=== PATIENT | female | born 1980 | race Caucasian/White ===

== ENCOUNTER 2023-08-12 00:16 | Inpatient (IN) | payer MEDICAID ==
[2023-08-12] VITALS (9 sets, daily range): BP systolic 104–143; BP diastolic 60–101; PULSE 78–111; RESP 18–22; TEMP 97.8–98.4; O2SAT 92–99
[~2023-08-12] VITALS: Ht 154.9 cm; Wt 100.8 kg
[2023-08-12] MEDS ORDERED: DEXTROSE (50%) 50ML SYRG IV PRN ×2 (03:00→14:30)
[2023-08-12] MEDS ORDERED: ONDANSETRON HCL 4 MG/2 ML VIAL IV PRN (03:00)
[2023-08-12] MEDS ORDERED: NITROGLYCERIN 0.4 MG SL TAB SL PRN (03:00)
[2023-08-12] MEDS ORDERED: MORPHINE SULFATE INJ 2 MG/ml SYRG IV PRN (03:00)
[2023-08-12] MEDS ORDERED: MELATONIN 5 MG TAB PO ONE (03:30)
[2023-08-12 03:58] LABS: Basophils # (auto) 0 10 ^3/uL (0-0.2); Eosinophils # (auto) 0 10 ^3/uL (0-0.8); Lymphocytes # (auto) 0.5 10 ^3/uL (0.4-5.4); Monocytes # (auto) 0 10 ^3/uL (0-1.3); White Blood Cell 6.2 10^3/uL (4.4-10.8)
[2023-08-12 04:00] LABS: Basophils % (auto) 0.2 % (0.0-2.0); Hemoglobin 11.4 g/dL (12.2-16.2); Lymphocytes % (auto) 7.8 % (10.0-50.0); Mean Corpuscular Hemoglobin 22.2 pg (28.0-32.0); Mean Corpuscular Volume 73.9 fL (80.0-100.0); Monocytes % (auto) 0.6 % (0.0-12.0); Neutrophils # (auto) 5.7 10 ^3/uL (1.6-8.6); Neutrophils % (auto) 91.4 % (37.0-80.0); Nucleated Red Blood Cells % 0.1 %; Red Blood Cells 5.14 10^6/uL (4.0-5.20)
[2023-08-12 04:07] LABS: Red Cell Distribution Width 23.3 % (11.8-14.3)
[2023-08-12] MEDS ORDERED: FURO40TA4 PO (04:09)
[2023-08-12] MEDS ORDERED: RIV15T PO (04:09)
[2023-08-12] MEDS ORDERED: SPIR25TA8 PO (04:09)
[2023-08-12] MEDS ORDERED: METF-372 PO (04:09)
[2023-08-12 04:12] LABS: INR 1.35 (0.9-1.15); Partial Thromboplastin Time 29.1 SEC (24.5-34.5)
[2023-08-12 04:27] LABS: Alanine Aminotransferase 55 U/L (7-40); Albumin 3.3 g/dL (3.2-4.8); Alkaline Phosphatase 94 U/L (46-116); Anion Gap 12 (5-15); Aspartate Aminotransferase 53 U/L (13-40); BUN/Creatinine Ratio 17.2 (10.0-20.0); Bilirubin, Total 0.8 mg/dL (0.2-1.0); Blood Urea Nitrogen 20 mg/dL (9-23); Calcium 8.6 mg/dL (8.7-10.4); Carbon Dioxide 23 mmol/L (20-30); Chloride 100 mmol/L (98-107); Potassium 3.7 mmol/L (3.5-5.1); Sodium 135 mmol/L (136-145); Total Protein 6.5 g/dL (5.7-8.2)
[2023-08-12 04:35] LABS: Glucose 499 mg/dL (74-106)
[2023-08-12] MEDS: ACCU-CHEK COMFORT CURVE STRIP VI SCH ×2 (05:21→17:00)
[2023-08-12] MEDS: InsuLIN REG 1unit/0.01ml Soln (100units/ml) SC SCH ×3 (05:22→22:12)
[2023-08-12] MEDS: FUROSEMIDE 20 MG/2 ML VIAL IV SCH (05:45)
[2023-08-12] MEDS ORDERED: FUROSEMIDE 40 MG TAB PO SCH (06:00)
[2023-08-12 06:10] LABS: Anisocytosis Slight; Hypochromia Moderate; Ovalocytes FEW; Platelet Estimate Adequate; Target Cell FEW
[2023-08-12 11:13] LABS: Magnesium 1.6 mg/dL (1.6-2.6)
[2023-08-12] MEDS: GABAPENTIN 100 MG CAP PO SCH (11:26)
[2023-08-12] MEDS: ASPirin 81 mg TAB PO SCH (11:26)
[2023-08-12] MEDS: SPIRONOLACTONE 25 MG TAB PO SCH (11:26)
[2023-08-12] MEDS: METOPROLOL TARTRATE 25 MG TAB PO SCH (11:39)
[2023-08-12] MEDS: ENOXAPARIN SOD 100 MG/1 ML SYRINGE SC SCH (11:40)
[2023-08-12] MEDS: MAGNESIUM SULFATE 1GM/100ML 100 ML IV ONE (13:35)
[2023-08-12] MEDS: POTASSIUM CHL 20 Meq TABLET PO ONE (13:35)
[2023-08-12 14:02] LABS: Urine WBC None Seen /hpf (0 - 5)
[2023-08-12] MEDS ORDERED: hydrOXYzine HCL 10 MG TAB PO PRN (14:15)
[2023-08-12] MEDS ORDERED: LORazepam 0.5 MG TAB PO PRN (14:15)
[2023-08-12 14:16] LABS: Urine Bacteria FEW /hpf (None Seen); Urine Blood Negative /uL (Negative); Urine Clarity Clear (Clear); Urine Color Light-Yellow (Yellow); Urine Protein, UAD Negative (Negative); Urine Specific Gravity 1.011 (1.001-1.035); Urine Urobilinogen Normal (Negative); Urine pH 5.5 (5.0-9.0)
[2023-08-12 14:24] LABS: Free T4 (Free Thyroxine) 0.97 ng/dL (0.89-1.76)
[2023-08-12 14:25] LABS: Ferritin 15.4 ng/mL (10-291); Free T3 4.01 pg/mL (2.3-4.2)
[2023-08-12 14:26] LABS: Amphetamine Screen, Urine Pos (NEGATIVE); Barbiturate Scree,Urine Neg (NEGATIVE); Benzodiazephine Screen, Urine Neg (NEGATIVE); Cocaine Screen, Urine Neg (NEGATIVE); Opiate Scree,Urine Neg (NEGATIVE); Phencyclidine Screen, Urine Neg (NEGATIVE)
[2023-08-12 14:27] LABS: Cannabinoid Screen, Urine Neg (NEGATIVE)
[2023-08-12 16:21] LABS: % Iron Saturation 7.5 % (15-50)
[2023-08-12] MEDS: FUROSEMIDE 40 MG/4 ML VIAL IV SCH (18:37)
[2023-08-12] MEDS ORDERED: ATORVASTATIN 20 MG TAB PO SCH (22:00)
[2023-08-12] MEDS: ATORVASTATIN 20 MG TAB PO SCH (22:14)
[2023-08-13] VITALS (12 sets, daily range): BP systolic 100–120; BP diastolic 57–84; PULSE 67–80; RESP 14–23; TEMP 97.9–98.5; O2SAT 92–100
[2023-08-13] MEDS: ACETAMINOPHEN 325 MG TAB PO PRN (03:24)
[2023-08-13 05:36] LABS: Basophils # (auto) 0 10 ^3/uL (0-0.2); Basophils % (auto) 0.2 % (0.0-2.0); Eosinophils # (auto) 0 10 ^3/uL (0-0.8); Lymphocytes # (auto) 0.9 10 ^3/uL (0.4-5.4); Mean Corpuscular Hemoglobin 22.3 pg (28.0-32.0); Nucleated Red Blood Cells % 0.1 %
[2023-08-13 05:39] LABS: Hematocrit 33.1 % (36.0-46.0); Hemoglobin 10.2 g/dL (12.2-16.2); Lymphocytes % (auto) 8.6 % (10.0-50.0); Mean Corpuscular Hgb Conc. 30.8 g/dL (32.0-36.0); Mean Corpuscular Volume 72.2 fL (80.0-100.0); Monocytes # (auto) 0.7 10 ^3/uL (0-1.3); Monocytes % (auto) 6.7 % (0.0-12.0); Neutrophils # (auto) 8.4 10 ^3/uL (1.6-8.6); Neutrophils % (auto) 84.5 % (37.0-80.0); Red Blood Cells 4.59 10^6/uL (4.0-5.20)
[2023-08-13 05:50] LABS: Red Cell Distribution Width 22.8 % (11.8-14.3)
[2023-08-13 05:51] LABS: Alanine Aminotransferase 55 U/L (7-40); Albumin 3.2 g/dL (3.2-4.8); Alkaline Phosphatase 97 U/L (46-116); Anion Gap 6 (5-15); Aspartate Aminotransferase 51 U/L (13-40); BUN/Creatinine Ratio 27.9 (10.0-20.0); Blood Urea Nitrogen 29 mg/dL (9-23); Calcium 8.9 mg/dL (8.7-10.4); Carbon Dioxide 28 mmol/L (20-30); Chloride 99 mmol/L (98-107); Glucose 342 mg/dL (74-106); Magnesium 1.8 mg/dL (1.6-2.6); Potassium 4.1 mmol/L (3.5-5.1); Sodium 133 mmol/L (136-145)
[2023-08-13 05:52] LABS: Bilirubin, Total 0.6 mg/dL (0.2-1.0)
[2023-08-13] MEDS: INSULIN LANTUS (GLARGINE) 1 /0.01ml (100units/ml) SC SCH (08:38)
[2023-08-13] MEDS: MAGNESIUM SULFATE 1GM/100ML 100 ML IV ONE (08:40)
[2023-08-13] MEDS: CARVEDILOL 3.125 MG TAB PO SCH (08:40)
[2023-08-13] MEDS ORDERED: IRON SUCROSE COMPLEX 100 ML IV SCH (12:00)
[2023-08-13] MEDS: SODIUM FERR GLUC 62.5MG/5ML 125 MG in SODIUM CHL 0.9% 100 ML IV SCH (13:58)
[2023-08-13] MEDS: LIDOCAINE 2%HCL (LOCAL ANESTH.) INJ 20ML MDV ONE (15:17)
[2023-08-13] MEDS: HEPARIN SODIUM (PORCINE) 5000 UNITS/ML 1ML VIAL ONE (15:20)
[2023-08-13] MEDS: ANGIOMAX 250 MG VIAL IV ONE (15:20)
[2023-08-13] MEDS: VERAPAMIL 2.5MG/ML INJ 2ML VIAL IV ONE (15:20)
[2023-08-13] MEDS: fentaNYL CITRATE 100 MCG/2 ML VL ONE (15:20)
[2023-08-13] MEDS: IODIXANOL 320MG/ML 100ML BTL IV ONE ×2 (15:21→15:36)
[2023-08-13] MEDS: SODIUM CHL 0.9% 0 ML ONE (15:21)
[2023-08-13] MEDS: MIDAZOLAM HCL 2MG/2ML 2ml VIAL (1mg/ml) ONE (15:21)
[2023-08-13] MEDS ORDERED: FERR325T24 PO (17:40)
[2023-08-13] MEDS ORDERED: CARV6.2551 PO (17:40)
[2023-08-13] MEDS ORDERED: MET25T PO (17:40)
[2023-08-13] MEDS: SACUBITRIL-VALSARTAN 24mg/26mg TAB PO SCH (21:36)
[2023-08-14 01:00] VITALS: BP 108/88; PULSE 77; RESP 23; TEMP 98.6; O2SAT 98
[2023-08-14 05:00] VITALS: BP 105/63; PULSE 80; RESP 19; TEMP 98.3; O2SAT 99
[2023-08-14] MEDS: FUROSEMIDE 40 MG/4 ML VIAL IV SCH (06:23)
[2023-08-14 07:37] LABS: Basophils # (auto) 0 10 ^3/uL (0-0.2); Eosinophils # (auto) 0 10 ^3/uL (0-0.8); Hematocrit 36.3 % (36.0-46.0); Mean Corpuscular Hemoglobin 22.3 pg (28.0-32.0); Monocytes # (auto) 0.7 10 ^3/uL (0-1.3); Neutrophils # (auto) 5.2 10 ^3/uL (1.6-8.6); Red Blood Cells 4.94 10^6/uL (4.0-5.20)
[2023-08-14 07:40] LABS: Alanine Aminotransferase 70 U/L (7-40); Albumin 3.5 g/dL (3.2-4.8); Alkaline Phosphatase 103 U/L (46-116); Anion Gap 6 (5-15); Aspartate Aminotransferase 84 U/L (13-40); Blood Urea Nitrogen 20 mg/dL (9-23); Calcium 8.8 mg/dL (8.7-10.4); Carbon Dioxide 29 mmol/L (20-30); Chloride 100 mmol/L (98-107); Glucose 172 mg/dL (74-106); Magnesium 1.9 mg/dL (1.6-2.6); Potassium 3.9 mmol/L (3.5-5.1); Sodium 135 mmol/L (136-145)
[2023-08-14 07:41] LABS: Basophils % (auto) 0.3 % (0.0-2.0); Bilirubin, Total 0.7 mg/dL (0.2-1.0); Eosinophils % (auto) 0.4 % (0.0-7.0); Lymphocytes # (auto) 2.4 10 ^3/uL (0.4-5.4); Mean Corpuscular Hgb Conc. 30.3 g/dL (32.0-36.0); Mean Corpuscular Volume 73.5 fL (80.0-100.0); Monocytes % (auto) 8.2 % (0.0-12.0); Neutrophils % (auto) 62.1 % (37.0-80.0); Nucleated Red Blood Cells % 0.4 %; Red Cell Distribution Width 23.4 % (11.8-14.3); Total Protein 6.4 g/dL (5.7-8.2); White Blood Cell 8.4 10^3/uL (4.4-10.8)
[2023-08-14 08:00] VITALS: BP 100/69; PULSE 73; PULSE 85; RESP 18; TEMP 97.6; O2SAT 100; O2SAT 99
[2023-08-14 08:47] LABS: Hepatitis B Surface Antigen Negative (Negative)
[2023-08-14 09:08] LABS: Hepatitis C Antibody Negative (Negative)
[2023-08-14] MEDS: EMPAGLIFLOZIN 10 MG TAB PO SCH (09:34)
[2023-08-14 13:00] VITALS: BP 94/59; PULSE 80; RESP 19; O2SAT 99
[2023-08-14] MEDS: hydrOXYzine HCL 10 MG TAB PO PRN (16:20)
[2023-08-14] MEDS ORDERED: EMPA1TAB PO (16:31)
[2023-08-14] MEDS ORDERED: ESCI5TAB PO (16:31)
[2023-08-14] MEDS ORDERED: ASPI-325 PO (16:31)
[2023-08-14] MEDS ORDERED: SACU1TAB PO (16:31)
[2023-08-14 17:10] VITALS: BP 94/59; PULSE 88; RESP 20; TEMP 97.6; O2SAT 99
[2023-08-14 17:15] VITALS: BP 116/74; PULSE 82; RESP 19; TEMP 98.3; O2SAT 93
== END 2023-08-14 18:41 | disposition home or self-care (01) | DRG 192 ==
LOC: TELE-WESTW 01:50
PROVIDERS: ADMIT Internal Medicine; ATTEND Internal Medicine
PROC: 4A023N7 Measurement of Cardiac Sampling and Pressure, Left Heart, Percutaneous Approach (ICD-10-PCS; principal; 2023-08-13)
PROC: B211YZZ Fluoroscopy of Multiple Coronary Arteries using Other Contrast (ICD-10-PCS; 2023-08-13)
PROC: B215YZZ Fluoroscopy of Left Heart using Other Contrast (ICD-10-PCS; 2023-08-13)
DX: I11.0 Hypertensive heart disease with heart failure (principal); J96.01 Acute respiratory failure with hypoxia; N17.0 Acute kidney failure with tubular necrosis; I21.A1 Myocardial infarction type 2; I42.8 Other cardiomyopathies; E11.65 Type 2 diabetes mellitus with hyperglycemia; D50.9 Iron deficiency anemia, unspecified; R45.851 Suicidal ideations; I50.23 Acute on chronic systolic (congestive) heart failure; F32.A Depression, unspecified; F19.10 Other psychoactive substance abuse, uncomplicated; F15.90 Other stimulant use, unspecified, uncomplicated; E66.9 Obesity, unspecified; E78.5 Hyperlipidemia, unspecified; Z88.8 Allergy status to other drugs, medicaments and biological substances; Z87.891 Personal history of nicotine dependence; Z79.84 Long term (current) use of oral hypoglycemic drugs; Z82.49 Family history of ischemic heart disease and other diseases of the circulatory system; Z86.711 Personal history of pulmonary embolism; Z68.41 Body mass index [BMI] 40.0-44.9, adult
CPT/HCPCS: 36415; 71045; 80053; 80061; 80307; 81001; 81025; 82728; 83036; 83540; 83550; 83735; 83880; 84439; 84443; 84481; 84484; 84702; 85025; 85379; 85610; 85730; 86803; 87081; 87340; 93306; 93458; 99152; G0378; J1815; J2250; Q9967